=== PATIENT | male | born 1940 | race Caucasian/White ===

== ENCOUNTER 2019-09-09 12:08 | Emergency (ER) | payer OTHER ==
--- NOTE | 2019-09-09 13:28 | RAD REPORT ---
EXAM DESCRIPTION: RAD - Pelvis - 09/09/2019 12:57 pm CLINICAL HISTORY: pain, pelvis and left hip pain COMPARISON: Hip Left 2 View dated 09/09/2019 TECHNIQUE: AP imaging of the pelvis was obtained. FINDINGS: Lower lumbar degenerative changes are present only partially imaged. SI joint and pubic sy mphysis degenerative changes are present. Bilateral hip joint degenerative changes are present and th ere is medial joint space narrowing. No fracture or acute finding of the bony pelvis. No right hip yana int abnormality seen. Left hip joint is separately detailed. IMPRESSION: No fracture of the bony pelvis.
--- NOTE | 2019-09-09 13:31 | RAD REPORT ---
EXAM DESCRIPTION: RAD - Hip Left 2 View - 09/09/2019 1:26 pm CLINICAL HISTORY: pain, fall with left hip pain COMPARISON: No comparisons FINDINGS: AP and frogleg views of the left hip were obtained. No dislocation of the humeral head. No AVN or focal femoral head abnormality. Fracture is not identif ied. On both views the greater trochanter is superimposed on all or most of the femoral neck. This li mits somewhat the femoral neck assessment for fracture. No fracture is suspected. No pathologic bone process seen. Left hip joint degenerative changes are present along the superior acetabular rim. Medial joint space narrowing present. No soft tissue abnormality. IMPRESSION: No hip fracture is seen though the femoral neck is partially obscured by superimposed gr eater trochanter.
--- NOTE | 2019-09-09 14:19 | ER ---
Nurse's Notes [facility] Name: Jason Bonilla Age: 79 yrs Sex: Male : 1940 Arrival Date: 09/09/2019 Time: 12:14 Bed 5 Private MD: Diagnosis: Contusion of left hip Presentation: 09/09 12:15 Presenting complaint: EMS states: Stood to move from wheelchair to bedside commode, ph stumbled and fell backwards landing on buttocks, denies head injury or LOC, does take blood thinners x 2, c/o L hip/buttocks pain, possible dislocation w/ deformity noted to buttock. Transition of care: patient was not received from another setting of care. Onset of symptoms was September 09, 2019. Risk Assessment: Do you want to hurt yourself or someone else? Patient reports no desire to harm self or others. Initial Sepsis Screen: Does the patient meet any 2 criteria? No. Patient's initial sepsis screen is negative. Does the patient have a suspected source of infection? No. Patient's initial sepsis screen is negative. Care prior to arrival: IV initiated. 22 GA, in the right hand. 12:15 Method Of Arrival: EMS: [facility] ph 12:15 Acuity: GRACE 2 ph Historical: - Allergies: 12:19 No Known Allergies; hb - Home Meds: 12:19 clopidogrel 75 mg oral tab 1 tab once daily [Active]; Eliquis 5 mg oral tab 1 tab 2 hb times per day [Active]; levothyroxine 75 mcg tab 1 tab once daily [Active]; montelukast 10 mg oral tab 1 tab once daily [Active]; Ofev 150 mg oral cap 1 cap every 12 hours [Active]; pantoprazole 40 mg oral TbEC 1 tab once daily [Active]; potassium chloride 20 mEq Oral TbTQ 1 tab once daily [Active]; prednisone 5 mg Oral tab once daily [Active]; Iron CR Oral [Active]; atorvastatin 40 mg oral tab 1 tab once daily [Active]; bumetanide 2 mg Oral tab once daily [Active]; folic acid 1 mg Oral tab 1 tab once daily [Active]; Magnesium Oxide Oral [Active]; vitamin b12 [Active]; ipratropium-albuterol 0.5 mg-3 mg(2.5 mg base)/3 mL Inhl nebu [Active]; - Immunization history:: Adult Immunizations up to date. - Coronavirus screen:: The patient has NOT traveled to [place] in the past 14 days. The patient has NOT had contact with known/suspected case of Coronavirus? Proceed with normal triage procedures. - Social history:: Smoking status: Patient denies any tobacco usage or history of. - Ebola Screening: : No symptoms or risks identified at this time. Screenin:20 Abuse screen: Denies threats or abuse. Denies injuries from another. Nutritional hb screening: No deficits noted. Tuberculosis screening: No symptoms or risk factors identified. Fall Risk Total Maki Fall Scale indicates Low Risk Score (25-44 pts). Fall prevention measures have been instituted. Side Rails Up X 2 Frequent Obs/Assesments occuring Family Present and informed to notify staff if they need to leave bedside As available Patient and Family Educated on Fall Prevention Program and strategies. Assessment: 12:19 Reassessment: ERP at bedside to assess pt, no deformity noted. ph 12:20 General: Appears in no apparent distress. uncomfortable, obese, well groomed, Behavior ph is calm, cooperative, appropriate for age. Pain: Complains of pain in left gluteus rylee. Neuro: Level of Consciousness is awake, alert, obeys commands, Oriented to person, place, time, situation. Cardiovascular: Capillary refill < 3 seconds in bilateral fingers Patient's skin is warm and dry. Pulses are palpable in right dorsalis pedis artery and left dorsalis pedis artery. Respiratory: Airway is patent Respiratory effort is even, unlabored. Derm: Skin is healthy with good turgor, is fragile, is thin, Skin is pink, warm \T\ dry. Musculoskeletal: Circulation, motion, and sensation intact. Range of motion: intact in all extremities. 13:11 Reassessment: Patient appears in no apparent distress at this time. Patient and/or ph family updated on plan of care and expected duration. Pain level reassessed. Patient is alert, oriented x 3, equal unlabored respirations, skin warm/dry/pink. Pt resting quietly, awaiting radiology results, family at bedside. Vital Signs: 12:19 BP 124 / 69; Pulse 111; Resp 18; Temp 97.6; Pulse Ox 95% on R/A; Weight 117.93 kg; Pain hb 5/10; ED Course: 12:14 Patient arrived in ED. iw 12:15 Herminia Mitchell, RN is Primary Nurse. ph 12:15 Yandel Pal PA is PHCP. jr8 12:15 Jelani Keen MD is Attending Physician. jr8 12:19 Triage completed. ph 12:19 Arm band placed on. hb 12:21 Patient has correct armband on for positive identification. Bed in low position. Call ph light in reach. Side rails up X2. Pulse ox on. NIBP on. Door closed. Noise minimized. Warm blanket given. Administered Medications: No medications were administered Outcome: 13:41 Discharge ordered by . jr8 14:35 Patient left the ED. iw Signatures: Anne-Marie Bethea, ROSA RN Yandel Pal PA PA jr8 Herminia Mitchell, RN RN Alicia Clemens, RN RN hb
--- NOTE | 2019-09-09 14:19 | EDPHYS ---
Physician Documentation [facility] Name: Jason Bonilla Age: 79 yrs Sex: Male : 1940 Arrival Date: 09/09/2019 Time: 12:14 Bed 5 Private MD: ED Physician Jelani Keen HPI: 09/09 12:30 This 79 yrs old presents to ER via EMS with complaints of Hip Injury. jr8 12:30 The patient or guardian reports pain. that occurred at home, sustained from a fall, jr8 while being transferred, There is no obvious deformity, The patient is able to ambulate with assistance. The patient is able to bear partial body weight. There is no radiation of the patient's discomfort. The complaints affect the left hip/buttock region. Onset: The symptoms/episode began/occurred acutely, today. Modifying factors: The symptoms are alleviated by nothing, the symptoms are aggravated by flexion. Associated signs and symptoms: Loss of consciousness: the patient experienced no loss of consciousness, Pertinent positives: None. Severity of symptoms: At their worst the symptoms were mild, in the emergency department the symptoms are unchanged. The patient has not experienced similar symptoms in the past. The patient has not recently seen a physician. Stated that he was transferring from wheel chair to toilet. Fell backwards landing primarily on left buttock. Pain since then. EMS saw bulge to hip reason and was concerned for dislocation. Patient denies hitting head or neck. No LOC. Denies complaint to any other body part at this time . Historical: - Allergies: 12:19 No Known Allergies; hb - Home Meds: 12:19 clopidogrel 75 mg oral tab 1 tab once daily [Active]; Eliquis 5 mg oral tab 1 tab 2 hb times per day [Active]; levothyroxine 75 mcg tab 1 tab once daily [Active]; montelukast 10 mg oral tab 1 tab once daily [Active]; Ofev 150 mg oral cap 1 cap every 12 hours [Active]; pantoprazole 40 mg oral TbEC 1 tab once daily [Active]; potassium chloride 20 mEq Oral TbTQ 1 tab once daily [Active]; prednisone 5 mg Oral tab once daily [Active]; Iron CR Oral [Active]; atorvastatin 40 mg oral tab 1 tab once daily [Active]; bumetanide 2 mg Oral tab once daily [Active]; folic acid 1 mg Oral tab 1 tab once daily [Active]; Magnesium Oxide Oral [Active]; vitamin b12 [Active]; ipratropium-albuterol 0.5 mg-3 mg(2.5 mg base)/3 mL Inhl nebu [Active]; - Immunization history:: Adult Immunizations up to date. - Coronavirus screen:: The patient has NOT traveled to [place] in the past 14 days. The patient has NOT had contact with known/suspected case of Coronavirus? Proceed with normal triage procedures. - Social history:: Smoking status: Patient denies any tobacco usage or history of. - Ebola Screening: : No symptoms or risks identified at this time. ROS: 12:30 Eyes: Negative for injury, pain, redness, and discharge, ENT: Negative for injury, jr8 pain, and discharge, Neck: Negative for injury, pain, and swelling, Cardiovascular: Negative for chest pain, palpitations, and edema, Respiratory: Negative for shortness of breath, cough, wheezing, and pleuritic chest pain, Abdomen/GI: Negative for abdominal pain, nausea, vomiting, diarrhea, and constipation, Back: Negative for injury and pain, Skin: Negative for injury, rash, and discoloration, Neuro: Negative for headache, weakness, numbness, tingling, and seizure. 12:30 MS/extremity: Positive for pain, tenderness, of the left hip, Negative for decreased range of motion. Exam: 12:30 Eyes: Pupils equal round and reactive to light, extra-ocular motions intact. Lids and jr8 lashes normal. Conjunctiva and sclera are non-icteric and not injected. Cornea within normal limits. Periorbital areas with no swelling, redness, or edema. ENT: Nares patent. No nasal discharge, no septal abnormalities noted. Tympanic membranes are normal and external auditory canals are clear. Oropharynx with no redness, swelling, or masses, exudates, or evidence of obstruction, uvula midline. Mucous membranes moist. Neck: Trachea midline, no thyromegaly or masses palpated, and no cervical lymphadenopathy. Supple, full range of motion without nuchal rigidity, or vertebral point tenderness. No Meningismus. Cardiovascular: Regular rate and rhythm with a normal S1 and S2. No gallops, murmurs, or rubs. Normal PMI, no JVD. No pulse deficits. Respiratory: Lungs have equal breath sounds bilaterally, clear to auscultation and percussion. No rales, rhonchi or wheezes noted. No increased work of breathing, no retractions or nasal flaring. Abdomen/GI: Soft, non-tender, with normal bowel sounds. No distension or tympany. No guarding or rebound. No evidence of tenderness throughout. Back: No spinal tenderness. No costovertebral tenderness. Full range of motion. Skin: Warm, dry with normal turgor. Normal color with no rashes, no lesions, and no evidence of cellulitis. Neuro: Awake and alert, GCS 15, oriented to person, place, time, and situation. Cranial nerves II-XII grossly intact. Motor strength 5/5 in all extremities. Sensory grossly intact. Cerebellar exam normal. Normal gait. 12:30 Musculoskeletal/extremity: ROM: intact in all extremities, full active range of motion, in all extremities, full passive range of motion, in all extremities, Circulation is intact in all extremities. Pulses: noted to be 2+ in the right radial artery, right dorsalis pedis artery, left radial artery and left dorsalis pedis artery, Sensation intact. No obvious signs of deformity. No external or internal rotation noted. No bruising noted to hip or buttock at this time. Tenderness present to left ischial region . Vital Signs: 12:19 BP 124 / 69; Pulse 111; Resp 18; Temp 97.6; Pulse Ox 95% on R/A; Weight 117.93 kg; Pain hb 5/10; MDM: 12:15 Patient medically screened. [facility] 13:40 Data reviewed: vital signs, nurses notes, radiologic studies, plain films. Data jr8 interpreted: Pulse oximetry: on room air is 95 %. Interpretation: normal. Counseling: I had a detailed discussion with the patient and/or guardian regarding: the historical points, exam findings, and any diagnostic results supporting the discharge/admit diagnosis, radiology results, the need for outpatient follow up, a orthopedic surgeon, to return to the emergency department if symptoms worsen or persist or if there are any questions or concerns that arise at home. 09/09 12:15 Order name: XRAY Pelvis jr8 09/09 12:15 Order name: XRAY Hip LEFT 2 view jr8 09/09 14:10 Order name: Hip Left 2 View; Complete Time: 15:09 EDOR 09/09 14:10 Order name: Pelvis; Complete Time: 15:09 EDOR Administered Medications: No medications were administered Disposition: 15:48 Co-signature as Attending Physician, Jelani Keen MD I agree with the assessment and kdr plan of care. Disposition: 09/09/19 13:41 Discharged to Home. Impression: Contusion of left hip. - Condition is Stable. - Discharge Instructions: Hip Pain. - Medication Reconciliation Form, Thank You Letter, Antibiotic Education, Prescription Opioid Use form. - Follow up: Private Physician; When: As needed; Reason: Recheck today's complaints, Continuance of care, Re-evaluation by your physician. - Problem is new. - Symptoms have improved. Signatures: Dispatcher [employer] [facility] Jelani Keen MD MD [facility] Anne-Marie Bethea RN RN Yandel Pal PA PA jr8 Alicia Clemens RN RN Corrections: (The following items were deleted from the chart) 14:35 13:41 09/09/2019 13:41 Discharged to Home. Impression: Contusion of left hip. Condition iw is Stable. Forms are Medication Reconciliation Form, Thank You Letter, Antibiotic Education, Prescription Opioid Use. Follow up: Private Physician; When: As needed; Reason: Recheck today's complaints, Continuance of care, Re-evaluation by your physician. Problem is new. Symptoms have improved. jr8
[2019-09-09 16:01] VITALS: BP 124/69; TEMP 97.6; O2SAT 95
== END 2019-09-09 14:35 | disposition home or self-care (01) ==
LOC: ER 12:08
DX: S70.02XA Contusion of left hip, initial encounter (principal); W18.11XA Fall from or off toilet without subsequent striking against object, initial encounter; Y93.89 Activity, other specified; Y92.002 Bathroom of unspecified non-institutional (private) residence as the place of occurrence of the external cause; Z79.01 Long term (current) use of anticoagulants
CPT/HCPCS: 72170; 99283